=== PATIENT | female | born 1950 | race Caucasian/White ===

== ENCOUNTER 2016-12-16 07:11 | Inpatient (IN) | payer MEDICARE, BC ==
[2016-12-16] MEDS ORDERED: SODIUM CHLORIDE 0.9% 1,000 ML IV STA (07:28)
[2016-12-16] MEDS ORDERED: HYDROmorphone 1 MG/ML 1 ML SYRINGE IVP STA (07:28)
[2016-12-16] MEDS ORDERED: RX INFO: IV CONTRAST WAS GIVEN 1 EACH MISC MISCELLANE PRN (07:28)
[2016-12-16] MEDS ORDERED: FAMOTIDINE 20 MG/2 ML VIAL IV STA (07:29)
--- NOTE | 2016-12-16 07:34 | ED ---
General Adult HPI - General Chief complaint: Abdominal Pain Stated complaint: abdominal pain Time Seen by Provider: 12/16/16 07:25 Source: patient, EMS, RN notes reviewed Mode of arrival: EMS Limitations: no limitations - History of Present Illness Initial comments: Patient is a pleasant 66-year-old female presenting to the emergency department complaining of abdominal discomfort. Discomfort started yesterday and has progressively worsen. Patient has had multiple episodes of emesis without change in bowel movements. Last bowel movement was yesterday and normal. Patient did have similar symptoms last year associated with bowel obstruction. No fevers. Nausea has improved with medication from EMS. - Related Data Home Medications Medication Instructions Recorded Confirmed Atorvastatin [Lipitor] 20 mg PO HS 12/16/16 12/16/16 Calcium Carbonate/Vitamin D3 1 tab PO DAILY 12/16/16 12/16/16 [Calcium 600-Vit D3 200 Tablet] Multivitamins, Thera [Multivitamin 1 tab PO DAILY 12/16/16 12/16/16 (formulary)] amLODIPine BESYLATE/BENAZEPRIL 1 cap PO DAILY 12/16/16 12/16/16 [amLODIPine BESYLATE/BENAZEPRIL 10-20 mg] Allergies Allergy/AdvReac Type Severity Reaction Status Date / Time No Known Allergies Allergy Verified 12/16/16 08:15 Review of Systems ROS Statement: Those systems with pertinent positive or pertinent negative responses have been documented in the HPI. ROS Other: All systems not noted in ROS Statement are negative. Constitutional: Denies: fever Eyes: Denies: eye pain ENT: Denies: ear pain Respiratory: Denies: cough Cardiovascular: Denies: chest pain Endocrine: Denies: fatigue Gastrointestinal: Reports: abdominal pain, nausea, vomiting. Denies: diarrhea, constipation Genitourinary: Denies: dysuria Musculoskeletal: Denies: arthralgia Skin: Denies: rash Past Medical History Past Medical History: Hypertension Additional Past Medical History / Comment(s): OSTEOPOROSIS History of Any Multi-Drug Resistant Organisms: None Reported Past Surgical History: Adenoidectomy, Appendectomy, Orthopedic Surgery, Tonsillectomy Additional Past Surgical History / Comment(s): RT ankle PLATE AND SCREWS, MANDIE CATARACTS Past Anesthesia/Blood Transfusion Reactions: No Reported Reaction Past Psychological History: No Psychological Hx Reported Smoking Status: Current every day smoker Past Alcohol Use History: Occasional Additional Past Alcohol Use History / Comment(s): STARTED SMOKING AT AGE 14, SMOKES 1 PPD, DECLINED A SMOKING CESSATION BOOKLET Past Drug Use History: None Reported - Past Family History Father Family Medical History: Myocardial Infarction (CT) Additional Family Medical History / Comment(s): IN HIS 50'S Mother Family Medical History: Eye Disorder Additional Family Medical History / Comment(s): TREMORS, MACULAR DEGENERATION General Exam Limitations: no limitations General appearance: alert, in no apparent distress Head exam: Present: atraumatic Eye exam: Present: normal appearance, PERRL ENT exam: Present: mucous membranes dry Neck exam: Present: normal inspection Respiratory exam: Present: normal lung sounds bilaterally Cardiovascular Exam: Present: regular rate, normal rhythm Expanded Peripheral pulses: 2+: Dorsalis Pedis (R), Dorsalis Pedis (L) GI/Abdominal exam: Present: soft, tenderness (Mild diffuse tenderness), diminished bowel sounds. Absent: distended, guarding, rebound, rigid, pulsatile mass Extremities exam: Present: normal inspection. Absent: pedal edema, calf tenderness Neurological exam: Present: alert Psychiatric exam: Present: normal affect, normal mood Skin exam: Absent: rash Course Vital Signs 12/16/16 12/16/16 07:13 09:15 Temperature 95.7 F L 96.9 F L Pulse Rate 82 76 Respiratory 16 16 Rate Blood Pressure 165/77 141/78 O2 Sat by Pulse 99 100 Oximetry - Reevaluation(s) Reevaluation #1: 12/16/16 09:44 Patient reexamined and updated. NG tube will be needed. Dr. Calvert pageannette for admission. He is currently in the OR. Medical Decision Making - Lab Data Result diagrams: 12/16/16 07:23 12/16/16 07:23 Lab Results 12/16/16 12/16/16 12/16/16 Range/Units 07:23 07:23 07:23 WBC 9.6 (3.8-10.6) k/uL RBC 5.52 H (3.80-5.40) m/uL Hgb 16.7 H (11.4-16.0) gm/dL Hct 49.8 H (34.0-46.0) % MCV 90.2 (80.0-100.0) fL MCH 30.3 (25.0-35.0) pg MCHC 33.5 (31.0-37.0) g/dL RDW 13.4 (11.5-15.5) % Plt Count 274 (150-450) k/uL Neutrophils % 80 % Lymphocytes % 14 % Monocytes % 5 % Eosinophils % 0 % Basophils % 0 % Neutrophils # 7.6 (1.3-7.7) k/uL Lymphocytes # 1.3 (1.0-4.8) k/uL Monocytes # 0.5 (0-1.0) k/uL Eosinophils # 0.0 (0-0.7) k/uL Basophils # 0.0 (0-0.2) k/uL PT (9.0-12.0) sec INR (<1.1) APTT (22.0-30.0) sec Sodium 143 (137-145) mmol/L Potassium 3.7 (3.5-5.1) mmol/L Chloride 105 (98-107) mmol/L Carbon Dioxide 19 L (22-30) mmol/L Anion Gap 19 mmol/L BUN 16 (7-17) mg/dL Creatinine 0.70 (0.52-1.04) mg/dL Est GFR (MDRD) Af Amer >60 (>60 ml/min/1.73 sqM) Est GFR (MDRD) Non-Af >60 (>60 ml/min/1.73 sqM) Glucose 244 H (74-99) mg/dL Calcium 9.9 (8.4-10.2) mg/dL Total Bilirubin 0.8 (0.2-1.3) mg/dL AST 24 (14-36) U/L ALT 20 (9-52) U/L Alkaline Phosphatase 138 H (38-126) U/L Total Creatine Kinase 31 (30-135) U/L CK-MB (CK-2) 0.6 (0.0-2.4) ng/mL CK-MB (CK-2) Rel Index 1.9 Troponin I <0.012 (0.000-0.034) ng/mL Total Protein 8.1 (6.3-8.2) g/dL Albumin 4.4 (3.5-5.0) g/dL Amylase 52 (30-110) U/L Lipase 64 (23-300) U/L 03 Range/Units 07:23 WBC (3.8-10.6) k/uL RBC (3.80-5.40) m/uL Hgb (11.4-16.0) gm/dL Hct (34.0-46.0) % MCV (80.0-100.0) fL MCH (25.0-35.0) pg MCHC (31.0-37.0) g/dL RDW (11.5-15.5) % Plt Count (150-450) k/uL Neutrophils % % Lymphocytes % % Monocytes % % Eosinophils % % Basophils % % Neutrophils # (1.3-7.7) k/uL Lymphocytes # (1.0-4.8) k/uL Monocytes # (0-1.0) k/uL Eosinophils # (0-0.7) k/uL Basophils # (0-0.2) k/uL PT 10.6 (9.0-12.0) sec INR 1.0 (<1.1) APTT 22.4 (22.0-30.0) sec Sodium (137-145) mmol/L Potassium (3.5-5.1) mmol/L Chloride (98-107) mmol/L Carbon Dioxide (22-30) mmol/L Anion Gap mmol/L BUN (7-17) mg/dL Creatinine (0.52-1.04) mg/dL Est GFR (MDRD) Af Amer (>60 ml/min/1.73 sqM) Est GFR (MDRD) Non-Af (>60 ml/min/1.73 sqM) Glucose (74-99) mg/dL Calcium (8.4-10.2) mg/dL Total Bilirubin (0.2-1.3) mg/dL AST (14-36) U/L ALT (9-52) U/L Alkaline Phosphatase (38-126) U/L Total Creatine Kinase (30-135) U/L CK-MB (CK-2) (0.0-2.4) ng/mL CK-MB (CK-2) Rel Index Troponin I (0.000-0.034) ng/mL Total Protein (6.3-8.2) g/dL Albumin (3.5-5.0) g/dL Amylase (30-110) U/L Lipase (23-300) U/L Disposition Clinical Impression: Small bowel obstruction Disposition: ADMITTED IP TO THIS HOSP
[2016-12-16 07:46] LABS: Basophils % (A) 0 %; CH 30.3; CHCM 33.7; Eosinophils % (A) 0 %; HCT 49.8 % (34.0-46.0); HDW 2.47; HGB 16.7 gm/dL (11.4-16.0); Luc # (Auto) 0.07; Luc % (Auto) 1; Lymphocytes # (A) 1.3 k/uL (1.0-4.8); Lymphocytes % (A) 14 %; MCH 30.3 pg (25.0-35.0); MCHC 33.5 g/dL (31.0-37.0); MCV 90.2 fL (80.0-100.0); Mean Platelet Volume 7.4; Monocytes # (A) 0.5 k/uL (0-1.0); Monocytes % (A) 5 %; Neutrophils # (A) 7.6 k/uL (1.3-7.7); Neutrophils % (A) 80 %; RBC 5.52 m/uL (3.80-5.40); RDW 13.4 % (11.5-15.5); WBC 9.6 k/uL (3.8-10.6); WBC (Perox) 9.73
[2016-12-16 08:01] LABS: ALT 20 U/L (9-52); AST 24 U/L (14-36); Alkaline Phosphatase 138 U/L (38-126); Amylase 52 U/L (30-110); Anion Gap 19 mmol/L; Blood Urea Nitrogen 16 mg/dL (7-17); Calcium 9.9 mg/dL (8.4-10.2); Carbon Dioxide 19 mmol/L (22-30); Chloride 105 mmol/L (98-107); Glucose 244 mg/dL (74-99); Non-African American GFR(MDRD) >60 (>60 ml/min/1.73 sqM); Potassium 3.7 mmol/L (3.5-5.1); Sodium 143 mmol/L (137-145); Total Bilirubin 0.8 mg/dL (0.2-1.3); Total Protein 8.1 g/dL (6.3-8.2)
--- NOTE | 2016-12-16 08:03 | XR ---
EXAMINATION TYPE: XR KUB DATE OF EXAM: 12/16/2016 7:59 AM COMPARISON: 06/20/2016 HISTORY: Abdominal pain TECHNIQUE: One view abdominal series FINDINGS: The osseous structures are intact. The bowel gas pattern is nonspecific. Hypertrophic and degenerati ve change of the spine with vascular calcifications noted. There are air-fluid levels noted with dila uqincy small bowel loops. Vascular calcifications noted. IMPRESSION: 1. Nonspecific abdomen. Differential diagnosis would include partial obstruction, ileus or enteritis . With history of previous bowel resection correlate for partial bowel obstruction.
[2016-12-16 08:09] LABS: Partial Thromboplastin Time 22.4 sec (22.0-30.0); Prothrombin Time 10.6 sec (9.0-12.0)
[2016-12-16 08:10] LABS: Creatine Kinase 31 U/L (30-135)
[2016-12-16 08:22] LABS: Creatine Kinase MB 0.6 ng/mL (0.0-2.4); Troponin I <0.012 ng/mL (0.000-0.034)
--- NOTE | 2016-12-16 09:13 | CT ---
EXAMINATION TYPE: CT abdomen pelvis w con DATE OF EXAM: 12/16/2016 8:44 AM REFERENCE: Previous study dated 06/22/2016 HISTORY: abdominal pain HISTORY: Patient complains of generalized abdominal pain, nausea, and vomiting. REFERENCE: NONE CT DLP: 615.7 mGy Automated exposure control for dose reduction was used. TECHNIQUE: Helical acquisition through the abdomen and pelvis was obtained following the oral ingesti on of without Oral Contrast and following intravenous administration of 100 mL of Omnipaque 300. The data was reformatted in axial, coronal and sagittal projections. FINDINGS: Visualized portions of the lungs are clear. There is no pleural or pericardial fluid. Within the abdomen, the liver, spleen and gallbladder are normal. Both adrenal glands are normal. Both kidneys demonstrate function and appear morphologically normal. The pancreas is unremarkable. There is an infrarenal abdominal aortic aneurysm with maximal transverse diameter of 4.1 cm. Previous ly this measured 4 cm. There is no significant retroperitoneal, iliac or inguinal adenopathy. The patient has a history of previous cecal resection. There are scattered diverticular changes in th e sigmoid colon. The remainder the colon is unremarkable. There is some dilatation of proximal small bowel. A definite transition point is not seen but is bk eved to be in the pelvis. The distal small bowel is normal in caliber. The uterus is unremarkable. The ovaries are not identified with certainty. The bladder appears normal . There is free fluid within the pelvis. No free air is seen. There is degenerative disc disease and hypertrophic spondylosis at L4-5. No other osseous lesion is s een. There is mild atheromatous calcification of the visualized vascular tree. IMPRESSION: 1. INFRARENAL ABDOMINAL AORTIC ANEURYSM WHICH IS STABLE FROM THE PREVIOUS STUDY. 2. PROXIMAL SMALL BOWEL OBSTRUCTION WITHOUT A DEFINITE TRANSITION POINT. 3. POSTSURGICAL CHANGE. 4. FREE FLUID WITHIN THE PELVIS.
[2016-12-16] MEDS ORDERED: HYDROmorphone 1 MG/ML 1 ML SYRINGE IV PRN (09:45)
[2016-12-16] MEDS ORDERED: ONDANSETRON 4 MG/2 ML VIAL IVP PRN ×2 (09:45→17:02)
[2016-12-16] MEDS ORDERED: NALOXONE 0.4 MG/ML 1 ML VIAL IV PRN (09:45)
[2016-12-16 10:11] LABS: Appearance,Urine Clear (Clear); Bilirubin,Urine Negative (Negative); Glucose,Urine (UA) 3+ (Negative); Ketones,Urine Trace (Negative); Leukocyte Esterase,Urine Negative (Negative); Mucus,Urine Rare /hpf; Nitrite,Urine Negative (Negative); Particle Count 2082; Protein,Urine Trace (Negative); RBC,Urine 2 /hpf (0-5); Squamous Epithelial Cell,Urine 3 /hpf (0-4); UA Billing (MACRO vs. MICRO) MICRO; Urobilinogen,Urine <2.0 mg/dL (<2.0); WBC,Urine 2 /hpf (0-5)
[2016-12-16 10:16] LABS: Specific Gravity,Urine >1.050 (1.001-1.035)
[2016-12-16] MEDS: SODIUM CHLORIDE 0.9% 1,000 ML IV SCH ×2 (11:32→18:14)
[2016-12-16] MEDS: ACETAMINOPHEN IV (For NPO) 1,000 MG in EMPTY BAG 1 BAG IVPB SCH ×2 (14:02→18:38)
[2016-12-16 17:02] LABS: Glucose,Whole Blood 143 mg/dL (75-99)
--- NOTE | 2016-12-16 17:04 | P.GSHP ---
History of Present Illness H&P Date: 12/16/16 Chief Complaint: Abdominal pain Patient is a 66-year-old white female with past medical history significant for bowel obstruction with right colectomy in May 2016, presenting to the hospital with complaints of diffuse pain associated with nausea and vomiting 1 day. No history of fever or chills. CT of abdomen and pelvis with evidence of proximal small bowel obstruction without a definite transition point. No evidence of leukocytosis. Hemoglobin 16.7. Upon examination, patient complains of diffuse abdominal pain currently rated 4 out of 10 associated with mild nausea without vomiting. Patient denies flatus or bowel movement. Patient states the last bowel movement was yesterday. Denies melena, hematochezia, or hematemesis. Past Medical History Past Medical History: Hyperlipidemia, Hypertension Additional Past Medical History / Comment(s): 06/14/16 Partial SBO wit surgery and abdominal abscess drained with f/u at [facility]-now healed, beginning of OSTEOPOROSIS History of Any Multi-Drug Resistant Organisms: None Reported Past Surgical History: Adenoidectomy, Appendectomy, Orthopedic Surgery, Tonsillectomy Additional Past Surgical History / Comment(s): 05/2016 exploratory laparatomy with lysis of adhesions, R colectomy, abdominal wall abscess with drainage-f/u in wound center, RT ankle PLATE AND SCREWS, MANDIE CATARACTS Past Anesthesia/Blood Transfusion Reactions: Postoperative Nausea & Vomiting ( PONV) Past Psychological History: No Psychological Hx Reported Additional Psychological History / Comment(s): Pt resides with her spouse. She uses no assistive device. She drives. Smoking Status: Current every day smoker Past Alcohol Use History: Occasional Additional Past Alcohol Use History / Comment(s): STARTED SMOKING AT AGE 14, SMOKES 1 PPD. Past Drug Use History: None Reported - Past Family History Father Family Medical History: Myocardial Infarction (PA) Additional Family Medical History / Comment(s): IN HIS 50'S of a PA Mother Family Medical History: Eye Disorder Additional Family Medical History / Comment(s): TREMORS, MACULAR DEGENERATION Medications and Allergies Home Medications Medication Instructions Recorded Confirmed Type Atorvastatin [Lipitor] 20 mg PO HS 12/16/16 12/16/16 History Calcium Carbonate/Vitamin D3 1 tab PO DAILY 12/16/16 12/16/16 History [Calcium 600-Vit D3 200 Tablet] Multivitamins, Thera [Multivitamin 1 tab PO DAILY 12/16/16 12/16/16 History (formulary)] amLODIPine BESYLATE/BENAZEPRIL 1 cap PO DAILY 12/16/16 12/16/16 History [amLODIPine BESYLATE/BENAZEPRIL 10-20 mg] Allergies Allergy/AdvReac Type Severity Reaction Status Date / Time No Known Allergies Allergy Verified 12/16/16 08:15 Surgical - Exam Vital Signs Temp Pulse Resp BP Pulse Ox 95.7 F L 82 16 165/77 99 12/16/16 07:13 12/16/16 07:13 12/16/16 07:13 12/16/16 07:13 12/16/16 07:13 GENERAL: Pt awake and alert, well-nourished, and in no acute distress. HEAD: Atraumatic, normocephalic. EYES: Pupils equal, round, and reactive to light, extraocular movements intact, sclera anicteric, conjunctiva are normal. ENT: Moist mucous membranes. NECK:Supple without lymphadenopathy or JVD. LUNGS: Breath sounds clear to auscultation bilaterally. No wheezes, rales, or rhonchi. HEART: Heart S1, S2, no S3 or S4. Regular rate and rhythm. No murmurs, rubs or gallops. ABDOMEN: Soft, moderate diffuse abdominal tenderness, mildly distended, hypoactive bowel sounds. No guarding, no rebound. No masses or organomegaly appreciated. Surgical scar clean. Results - Labs 12/16/16 07:23 12/16/16 07:23 - Imaging Abdominal x-ray: report reviewed CT scan - pelvis: report reviewed US - abdomen: report reviewed Assessment and Plan Plan: Impression: 1. Abdominal pain associated with nausea and vomiting, present on admission, suspect secondary to small bowel obstruction. 2. History of small bowel obstruction with right colectomy. Plan: Continue to monitor patient. Nothing by mouth. Continue nasogastric tube to low intermittent suction for small bowel decompression. Continue symptomatic treatment and pain management. Continue GI and DVT prophylaxis. Continue incentive spirometer 10 times an hour while awake. Consult Dr Webber for medical management. Repeat CBC and BMP in a.m. The above impression and plan have been discussed and directed by Dr. Calvert. Yoly BEEBE acting as scribe for Dr. Calvert.
[2016-12-16] MEDS: HYDROmorphone 1 MG/ML 1 ML SYRINGE IVP PRN ×2 (18:15→22:02)
[2016-12-16 19:24] LABS: Hemoglobin A1C 5.7 % (4.2-6.1)
--- NOTE | 2016-12-16 19:33 | CONS ---
DATE OF CONSULTATION: REASON FOR CONSULTATION: Partial small bowel obstruction and management of hypertension. Patient is a pleasant 66-year-old female who came in with complaints of multiple episodes of nausea and vomiting which is bilious. Denied any ( ). Denied any hematochezia. Patient has minimal abdominal discomfort. Denied any fever or chills. Denied any diarrhea. Denied any suprapubic pain. Patient had a CT of the abdomen that showed partial small-bowel obstruction. Patient had a small-bowel obstruction in the past. Patient underwent laparotomy ( ) adhesiolysis. Patient's last bowel movement was yesterday and was normal. Patient has an NG tube which is not is not draining at this time, which will be readjusted. REVIEW OF SYSTEMS: CONSTITUTIONAL: No fever, no malaise, no fatigue. HEENT: No recent visual problems or hearing problems. Denied any sore throat. CARDIOVASCULAR: No chest pain, orthopnea, PND, no palpitations, no syncope. PULMONARY: No shortness of breath, no cough, no hemoptysis. GASTROINTESTINAL: As described in HPI. NEUROLOGICAL: No headaches, no weakness, no numbness. HEMATOLOGICAL: Denies any bleeding or petechiae. GENITOURINARY: Denies any burning micturition, frequency, or urgency. MUSCULOSKELETAL/RHEUMATOLOGICAL: Denies any joint pain, swelling, or any muscle pain. ENDOCRINE: Denies any polyuria or polydipsia. The rest of the 14 point review of systems is negative. Home medications include: 1. Atorvastatin. 2. Calcium carbonate. 3. Multivitamin. 4. Amlodipine. 5. Benazepril. ALLERGIES: NO KNOWN DRUG ALLERGIES. Past medical history is significant for: 1. Hypertension. 2. Hyperlipidemia. 3. Osteoporosis. 4. History of adenoidectomy. 5. Appendectomy. 6. Orthopedic surgery. 7. Abdominal surgery in the past for bowel obstruction. SOCIAL HISTORY: Patient does smoke. Denied any alcohol abuse or any drug abuse. FAMILY HISTORY: Father had myocardial infarction. PHYSICAL EXAMINATION: VITAL SIGNS: Temperature 96.9, pulse of 76, respiratory rate of 16. Blood pressure is 141/78. Saturating at 100% on room air. GENERAL: The patient is alert and oriented x3, not in any acute distress. Well developed, well nourished. HEENT: Pupils are round and equally reacting to light. EOMI. No scleral icterus. No conjunctival pallor. Normocephalic, atraumatic. No pharyngeal erythema. No thyromegaly. CARDIOVASCULAR: S1 and S2 present. No murmurs, rubs, or gallops. PULMONARY: Chest is clear to auscultation, no wheezing or crackles. ABDOMEN: ( ) sluggish bowel sounds. Has an NG tube in place which is not appropriately placed yet. It will be readjusted. Not draining anything ( ) MUSCULOSKELETAL: No joint swelling or deformity. EXTREMITIES: No cyanosis, clubbing, or pedal edema. NEUROLOGICAL: Gross neurological examination did not reveal any focal deficits. SKIN: No rashes. LABORATORY DATA: CBC and CMP are abnormal for total bicarbonate of 19, probably related to GI losses of bicarbonate. Calcium of 9.9. WBC is essentially within normal. INR is 1.0. ASSESSMENT AND PLAN: 1. Partial small-bowel obstruction. Patient is admitted to surgical services and patient has an NG tube ( ) 2. Metabolic acidosis secondary to ( ) bicarbonate from the GI tract. 3. Hypertension. Can hold ( ) at which point in time ( ) patient's blood pressures are expected to go down because of her nausea, vomiting ( ) hypokalemia ( ) started on Lipitor whenever it is appropriate to switch ( ) 4. ( )
[2016-12-16] MEDS: ATORVASTATIN 20 MG TAB PO SCH (22:07)
[2016-12-17] MEDS: HYDROmorphone 1 MG/ML 1 ML SYRINGE IVP PRN ×5 (01:45→16:40)
[2016-12-17] MEDS: ACETAMINOPHEN IV (For NPO) 1,000 MG in EMPTY BAG 1 BAG IVPB SCH ×2 (04:46)
[2016-12-17] MEDS: SODIUM CHLORIDE 0.9% 1,000 ML IV SCH ×2 (04:46→11:52)
[2016-12-17 06:44] LABS: Glucose,Whole Blood 126 mg/dL (75-99)
[2016-12-17 07:49] LABS: CH 30.1; CHCM 33.1; HCT 42.6 % (34.0-46.0); HDW 2.54; HGB 13.9 gm/dL (11.4-16.0); Immature Gran Flag Marked; MCH 29.9 pg (25.0-35.0); MCHC 32.7 g/dL (31.0-37.0); MCV 91.5 fL (80.0-100.0); Mean Platelet Volume 7.5; RBC 4.65 m/uL (3.80-5.40); RDW 13.9 % (11.5-15.5); WBC 14.5 k/uL (3.8-10.6); WBC (Perox) 14.89
[2016-12-17 08:01] LABS: Magnesium 1.6 mg/dL (1.6-2.3); Potassium 4.7 mmol/L (3.5-5.1)
[2016-12-17] MEDS: PANTOPRAZOLE 40 MG/10 ML VIAL IV SCH (08:29)
[2016-12-17 09:06] LABS: Add Differential Manual Differential
[2016-12-17 09:09] LABS: Metamyelocytes % 1.5 %; Nucleated Red Blood Cells 0 /100 WBC (0-0); Total Cells Counted 200
[2016-12-17 09:11] LABS: RBC Morphology Normal
--- NOTE | 2016-12-17 12:31 | P.PN ---
Subjective Principal diagnosis: Small bowel obstruction The patient denies any significant flatus. She states that she still has some abdominal pain. She states sometimes the pain extends towards the rectum. Objective - Vital Signs Vital signs: Vital Signs Temp 98.3 F 12/17/16 07:00 Pulse 128 H 12/17/16 08:00 Resp 18 12/17/16 07:00 BP 99/65 12/17/16 07:00 Pulse Ox 97 12/17/16 07:00 Intake & Output 12/16/16 12/17/16 12/17/16 18:59 06:59 18:59 Intake Total 1375 Output Total 450 450 Balance -450 925 Intake: Intake, IV Titration 1375 Amount Sodium Chloride 0.9% 1, 1375 000 ml @ 125 mls/hr IV . Q8H ABDULLAHI Rx#:[id number] Output: Gastric Drainage 450 450 Other: # Voids 1 2 1 - Constitutional General appearance: Present: average body habitus - Gastrointestinal Gastrointestinal Comment(s): Abdomen soft. There is minimal distention. There is some mild tenderness throughout. There is no rebound or guarding. - Labs CBC & Chem 7: 12/17/16 07:13 12/17/16 07:13 Labs: Abnormal Lab Results - Last 24 Hours (Table) 12/16/16 12/17/16 12/17/16 Range/Units 16:55 06:42 07:13 WBC 14.5 H (3.8-10.6) k/uL Neutrophils # (Manual) 11.9 H (1.3-7.7) k/uL Lymphocytes # (Manual) 0.8 L (1.0-4.8) k/uL Monocytes # (Manual) 1.4 H (0-1.0) k/uL Chloride (98-107) mmol/L Carbon Dioxide (22-30) mmol/L BUN (7-17) mg/dL Creatinine (0.52-1.04) mg/dL Glucose (74-99) mg/dL POC Glucose (mg/dL) 143 H 126 H (75-99) mg/dL 12/17/16 Range/Units 07:13 WBC (3.8-10.6) k/uL Neutrophils # (Manual) (1.3-7.7) k/uL Lymphocytes # (Manual) (1.0-4.8) k/uL Monocytes # (Manual) (0-1.0) k/uL Chloride 113 H (98-107) mmol/L Carbon Dioxide 18 L (22-30) mmol/L BUN 33 H (7-17) mg/dL Creatinine 1.68 H (0.52-1.04) mg/dL Glucose 125 H (74-99) mg/dL POC Glucose (mg/dL) (75-99) mg/dL Assessment and Plan Plan: Small bowel structure. Patient will continue receive nasogastric tube decompression. She'll be observed closely. If her symptoms have not improved tomorrow we will repeat her CAT scan.
[2016-12-17] MEDS ORDERED: LORazepam 2 MG/ML SYRINGE IV PRN (12:49)
[2016-12-17] MEDS: LACTATED RINGERS 1,000 ML IV SCH ×2 (16:46→23:01)
[2016-12-17] MEDS: PIPERACILLIN-TAZOBACTAM 3.375 GM in DEXTROSE/WATER 1 50ML.BAG IVPB SCH (16:46)
[2016-12-17 17:07] LABS: Glucose,Whole Blood 67 mg/dL (75-99)
[2016-12-17 17:48] LABS: Glucose,Whole Blood 64 mg/dL (75-99)
[2016-12-17] MEDS ORDERED: DEXTROSE 50%-WATER 50 ML SYRINGE IVP ONE (18:44)
[2016-12-17] MEDS ORDERED: DEXTROSE 5% IN WATER 1,000 ML IV SCH (18:45)
[2016-12-17] MEDS: DEXTROSE 50%-WATER 50 ML SYRINGE IVP STA (18:45)
[2016-12-17 19:22] LABS: Glucose,Whole Blood 84 mg/dL (75-99)
[2016-12-17] MEDS ORDERED: DEXTROSE 50%-WATER 50 ML SYRINGE IVP STA (19:48)
[2016-12-17 19:49] LABS: Glucose,Whole Blood 58 mg/dL (75-99)
[2016-12-17] MEDS: DEXTROSE 5% IN WATER 1,000 ML IV SCH (20:19)
[2016-12-17 20:20] LABS: Glucose,Whole Blood 137 mg/dL (75-99)
[2016-12-17] MEDS: ATORVASTATIN 20 MG TAB PO SCH (20:23)
[2016-12-17 21:03] LABS: Glucose,Whole Blood 86 mg/dL (75-99)
--- NOTE | 2016-12-17 21:13 | PN ---
Patient is a 66-year-old lady admitted with partial small-bowel obstruction and patient was started on antibiotics by Surgery. I will leave that decision up to them. Patient does have leukocytosis which is reactive without any other signs or symptoms of infection at this point of time. Patient has hyperchloremia, because of which I am changing her fluids to lactated Ringer's. Patient is still having NG tube drainage, but patient does have bowel sounds and is passing gas. REVIEW OF SYSTEMS: CARDIOVASCULAR: No chest pain, no orthopnea, no PND, no palpitations. PULMONARY: Denied any shortness of breath. No cough or hemoptysis. GASTROINTESTINAL: As mentioned above. NEUROLOGIC: No headaches, no weakness, no numbness. Medications were reviewed. Medication changes as mentioned in the interval history. PHYSICAL EXAMINATION: VITAL SIGNS: Temperature 97.6, pulse of 55, respiratory rate of 16, blood pressure is ( )/92, saturating at 95% on room air. GENERAL: Patient has an NG tube in place. Alert and oriented x3, not in apparent respiratory distress. HEENT: Pupils are round and equally reacting to light. EOMI. No scleral icterus. No conjunctival pallor. Normocephalic, atraumatic. No pharyngeal erythema. No thyromegaly. CARDIOVASCULAR: S1 and S2 present. No murmurs, rubs, or gallops. PULMONARY: Chest is clear to auscultation, no wheezing or crackles. ABDOMEN: Bowel sounds present. Abdomen is soft, mildly distended, nontender. MUSCULOSKELETAL: No joint swelling or deformity. EXTREMITIES: No cyanosis, clubbing, or pedal edema. NEUROLOGICAL: Gross neurological examination did not reveal any focal deficits. SKIN: No rashes. LABORATORY DATA: Patient has hyperchloremia, as mentioned above. Bicarbonate is 18, probably because of hyperchloremia. Kidney function has worsened, because of which I am increasing the fluids to 150 mL/h. ASSESSMENT AND PLAN: 1. Partial small-bowel obstruction. Continue with nasogastric tube. Further management as per Primary Service. 2. Metabolic acidosis secondary to also bicarbonate from the gastrointestinal tract. 3. Hypertension. Continue to hold antihypertensive medications because intravascular volume depletion. 4. Acute renal failure. Started on lactated Ringer's. 5. Hyperchloremia due to normal saline. 6. Will continue to follow the patient.
[2016-12-17] MEDS ORDERED: IOHEXOL 350 MG/ML 25 ML BOTTLE (ORAL USE) PO PRN (21:19)
[2016-12-17] MEDS ORDERED: RX INFO: IV CONTRAST WAS GIVEN 1 EACH MISC MISCELLANE PRN (21:19)
[2016-12-17 22:15] LABS: ALT 729 U/L (9-52); Alkaline Phosphatase 64 U/L (38-126); Anion Gap 17 mmol/L; Blood Urea Nitrogen 52 mg/dL (7-17); Calcium 8.3 mg/dL (8.4-10.2); Carbon Dioxide 11 mmol/L (22-30); Chloride 117 mmol/L (98-107); Glucose 74 mg/dL (74-99); Phosphorous 5.4 mg/dL (2.5-4.5); Potassium 5.4 mmol/L (3.5-5.1); Sodium 145 mmol/L (137-145); Total Bilirubin 1.7 mg/dL (0.2-1.3); Total Protein 5.3 g/dL (6.3-8.2)
[2016-12-17 22:16] LABS: Glucose,Whole Blood 52 mg/dL (75-99)
[2016-12-17 22:17] LABS: AST >750 U/L (14-36); Non-African American GFR(MDRD) 13 (>60 ml/min/1.73 sqM)
[2016-12-17 22:33] LABS: Glucose,Whole Blood 98 mg/dL (75-99)
[2016-12-17 22:42] LABS: Basophils % (A) 0 %; CH 29.3; CHCM 31.1; Eosinophils % (A) 0 %; HCT 36.4 % (34.0-46.0); HDW 2.56; HGB 11.5 gm/dL (11.4-16.0); Hypochromasia Slight; Immature Gran Flag Marked; Luc # (Auto) 0.16; Luc % (Auto) 2; Lymphocytes # (A) 0.8 k/uL (1.0-4.8); Lymphocytes % (A) 9 %; MCH 29.9 pg (25.0-35.0); MCHC 31.6 g/dL (31.0-37.0); MCV 94.9 fL (80.0-100.0); Mean Platelet Volume 8.7; Monocytes # (A) 0.4 k/uL (0-1.0); Monocytes % (A) 5 %; Neutrophils # (A) 6.8 k/uL (1.3-7.7); Neutrophils % (A) 83 %; RBC 3.84 m/uL (3.80-5.40); RDW 14.1 % (11.5-15.5); WBC 8.2 k/uL (3.8-10.6); WBC (Perox) 8.15
[2016-12-17 22:50] LABS: Manual Review Performed; Toxic Granulation Present
[2016-12-17] MEDS: NOREPINEPHRINE 16 MG in SODIUM CHLORIDE 0.9% 250 ML IV SCH (23:51)
[2016-12-18] MEDS: PIPERACILLIN-TAZOBACTAM 3.375 GM in DEXTROSE/WATER 1 50ML.BAG IVPB SCH ×3 (00:08→16:06)
[2016-12-18] MEDS: HYDROmorphone 1 MG/ML 1 ML SYRINGE IVP PRN ×2 (01:13→21:16)
[2016-12-18 02:02] LABS: Glucose,Whole Blood 84 mg/dL (75-99)
[2016-12-18] MEDS: DEXTROSE 5% IN WATER 1,000 ML IV SCH ×2 (02:34→09:54)
--- NOTE | 2016-12-18 02:34 | CT ---
EXAM: CT Abdomen and Pelvis Without Intravenous Contrast. CLINICAL HISTORY: Reason: obstruction TECHNIQUE: Axial computed tomography images of the abdomen and pelvis without intravenous contrast. CTDI is 20.6 mGy and DLP is 989.6 mGy-cm This CT exam was performed using one or more of the following dose reduction techniques: automated exposure control, adjustment of the mA and/or kV according to patient size, and/or use of iterative reconstruction technique. COMPARISON: CT 12/16/2016. FINDINGS: Lower thorax: Small bilateral pleural effusions with bibasilar consolidation, new since prior study. ABDOMEN: Liver: Unremarkable. Gallbladder and bile ducts: Distended gallbladder. Pancreas: Unremarkable. Spleen: Unremarkable. Adrenals: Thickening of the bilateral adrenal glands, unchanged. Kidneys and ureters: Patchy hyperdensities in the bilateral kidneys, unclear etiology, query retained contrast. Correlate with renal function. No hydronephrosis. Stomach and bowel: Distended bowel loops again noted, compatible with bowel obstruction. Interval increase in gastric, duodenal and proximal small bowel distention. Areas of small and large bowel wall thickening suggestive of enterocolitis. Difficult considerations include inflammatory/infectious or ischemic etiologies. There is associated mesenteric stranding/edema. Interval increase in moderate ascites. Prior bowel surgery again noted. Colonic diverticula. PELVIS: Bladder: Coelho catheter in a decompressed bladder. Reproductive: A 4.8 cm hyperdense ovoid lesion in the right pelvis, possible ovarian or exophytic uterine lesion, not significantly changed. ABDOMEN and PELVIS: Intraperitoneal space: See above. Bones/joints: Degenerative changes in the spine. Soft tissues: Unremarkable. Vasculature: Stable infrarenal abdominal aortic aneurysm measuring up to 4.1 cm. Atherosclerotic disease. Lymph nodes: Unremarkable. Tubes, lines and devices: Feeding tube with the tip in the stomach. IMPRESSION: 1. Distended bowel loops again noted, compatible with bowel obstruction. Interval increase in gastric, duodenal and proximal small bowel distention. Areas of small and large bowel wall thickening suggestive of enterocolitis. Difficult considerations include inflammatory/infectious or ischemic etiologies. There is associated mesenteric stranding/edema. Interval increase in moderate ascites. 2. Small bilateral pleural effusions with bibasilar consolidation, new since prior study. 3. Patchy hyperdensities in the bilateral kidneys, unclear etiology, query retained contrast. Correlate with renal function. 4. Additional findings, as above.
[2016-12-18 04:39] LABS: Glucose,Whole Blood 93 mg/dL (75-99)
[2016-12-18 04:49] LABS: CH 29.8; CHCM 32.3; HCT 37.1 % (34.0-46.0); HDW 2.58; HGB 12.3 gm/dL (11.4-16.0); Immature Gran Flag Marked; MCH 30.8 pg (25.0-35.0); MCHC 33.2 g/dL (31.0-37.0); MCV 92.9 fL (80.0-100.0); Mean Platelet Volume 8.4; RDW 14.3 % (11.5-15.5); WBC (Perox) 9.64
[2016-12-18 05:14] LABS: Calcium 7.3 mg/dL (8.4-10.2); Magnesium 1.6 mg/dL (1.6-2.3); Phosphorous 4.7 mg/dL (2.5-4.5); Potassium 4.9 mmol/L (3.5-5.1); Total Protein 4.6 g/dL (6.3-8.2)
[2016-12-18 05:37] LABS: Add Differential Manual Differential
[2016-12-18 05:40] LABS: Manual Review Performed; Nucleated Red Blood Cells 0 /100 WBC (0-0); Total Cells Counted 200
--- NOTE | 2016-12-18 07:16 | XR ---
EXAMINATION TYPE: XR chest 1V DATE OF EXAM: 12/18/2016 6:56 AM HISTORY: small bowel obstruction. REFERENCE: Previous study dated 06/23/2016. FINDINGS: An NG tube is present with its tip in the stomach. There are small, bilateral pleural effusions. Heart size is upper limits of normal. There is bibasila r atelectasis. IMPRESSION: 1. BILATERAL EFFUSIONS. 2. BORDERLINE CARDIOMEGALY. 3. BIBASILAR ATELECTASIS.
[2016-12-18 08:09] LABS: Glucose,Whole Blood 69 mg/dL (75-99)
[2016-12-18 08:10] LABS: ABG PCO2 23 mmHg (35-45); ABG PH 7.21 (7.35-7.45); ABG PO2 57 mmHg (83-108)
[2016-12-18 08:11] LABS: ABG Base Excess -17.5 mmol/L; ABG HCO3 9 mmol/L (21-25); ABG TCO2 10 mmol/L (19-24)
[2016-12-18 08:12] LABS: Glucose,Whole Blood 92 mg/dL (75-99)
[2016-12-18] MEDS ORDERED: MORPHINE SULFATE 2 MG/ML SYRINGE ONE ×3 (08:40→08:43)
[2016-12-18] MEDS ORDERED: SUCCINYLCHOLINE CHLORIDE 100 MG/5 ML SYR IV ONE (08:41)
[2016-12-18] MEDS ORDERED: CISATRACURIUM 2 MG/ML 5 ML VIAL IV ONE ×2 (08:43→08:55)
[2016-12-18] MEDS ORDERED: MORPHINE SULFATE 2 MG/ML SYRINGE IV SCH (09:00)
[2016-12-18] MEDS ORDERED: CISATRACURIUM 200 MG in SODIUM CHLORIDE 0.9% 180 ML IV SCH (09:10)
--- NOTE | 2016-12-18 09:13 | P.CNPUL ---
History of Present Illness Consult date: 12/18/16 Reason for consult: other Chief complaint: Bowel obstruction History of present illness: 66-year-old female admitted through the emergency department on 12/16/2016 with complaints of abdominal pain. Computed tomography scan revealed evidence of bowel obstruction. She has a previous history of same about 6 months ago and had exploratory laparotomy with lysis of adhesions. The pain got worse and she was transferred from the floor up into the ICU. She was admitted on the she went to the ICU on the first. I came to see her on the second in the morning. The nurse call me to states she was getting worse. Her respiratory rate was rapid. Her blood pressure had dropped. She had poor urine output. She was in distress. I immediately intubated the patient and placed a left internal jugular triple-lumen catheter. An art line had been previously placed. I put her on the ventilator. We went ahead and sedated and paralyzed her. Blood gases are pending. When she came into the emergency room, she had not only abdominal discomfort but she had multiple episodes of emesis. Apparently Dr. Calvert has talk to the family and they're taken to the operating room for an exploratory laparotomy. Review of Systems ROS unobtainable: due to endotracheal tube Past Medical History Past Medical History: Hyperlipidemia, Hypertension Additional Past Medical History / Comment(s): 06/14/16 Partial SBO wit surgery and abdominal abscess drained with f/u at [facility]-now healed, beginning of OSTEOPOROSIS History of Any Multi-Drug Resistant Organisms: None Reported Past Surgical History: Adenoidectomy, Appendectomy, Orthopedic Surgery, Tonsillectomy Additional Past Surgical History / Comment(s): 05/2016 exploratory laparatomy with lysis of adhesions, R colectomy, abdominal wall abscess with drainage-f/u in wound center, RT ankle PLATE AND SCREWS, MANDIE CATARACTS Past Anesthesia/Blood Transfusion Reactions: Postoperative Nausea & Vomiting ( PONV) Past Psychological History: No Psychological Hx Reported Additional Psychological History / Comment(s): Pt resides with her spouse. She uses no assistive device. She drives. Smoking Status: Current every day smoker Past Alcohol Use History: Occasional Additional Past Alcohol Use History / Comment(s): STARTED SMOKING AT AGE 14, SMOKES 1 PPD. Past Drug Use History: None Reported - Past Family History Father Family Medical History: Myocardial Infarction (MS) Additional Family Medical History / Comment(s): IN HIS 50'S of a MS Mother Family Medical History: Eye Disorder Additional Family Medical History / Comment(s): TREMORS, MACULAR DEGENERATION Medications and Allergies Home Medications Medication Instructions Recorded Confirmed Type Atorvastatin [Lipitor] 20 mg PO HS 12/16/16 12/16/16 History Calcium Carbonate/Vitamin D3 1 tab PO DAILY 12/16/16 12/16/16 History [Calcium 600-Vit D3 200 Tablet] Multivitamins, Thera [Multivitamin 1 tab PO DAILY 12/16/16 12/16/16 History (formulary)] amLODIPine BESYLATE/BENAZEPRIL 1 cap PO DAILY 12/16/16 12/16/16 History [amLODIPine BESYLATE/BENAZEPRIL 10-20 mg] Allergies Allergy/AdvReac Type Severity Reaction Status Date / Time No Known Allergies Allergy Verified 12/16/16 08:15 Physical Exam Osteopathic Statement: *. No significant issues noted on an osteopathic structural exam other than those noted in the History and Physical/Consult. Vitals: Vital Signs Temp Pulse Pulse Resp BP BP Pulse Ox 12/18/16 07:00 107 H 34 H 93 L 12/18/16 06:50 107 H 43 H 96 12/18/16 06:40 110 H 41 H 93 L 12/18/16 06:30 110 H 39 H 94 L 12/18/16 06:20 95 32 H 94 L 12/18/16 06:10 113 H 42 H 86/64 93 L 12/18/16 06:00 115 H 40 H 86/64 92 L 12/18/16 05:50 116 H 44 H 86/64 90 L 12/18/16 05:40 111 H 39 H 86/64 91 L 12/18/16 05:30 115 H 35 H 86/64 92 L 12/18/16 05:20 104 H 40 H 86/64 83 L 12/18/16 05:10 109 H 37 H 98/56 91 L 12/18/16 05:00 111 H 33 H 98/56 85 L 12/18/16 04:50 109 H 39 H 98/56 90 L 12/18/16 04:40 109 H 40 H 98/56 87 L 12/18/16 04:20 110 H 37 H 98/56 90 L 12/18/16 04:10 111 H 38 H 105/56 88 L 12/18/16 04:00 98.9 F 103 H 36 H 105/56 92 L 12/18/16 03:50 107 H 37 H 105/56 92 L 12/18/16 03:40 105 H 31 H 105/56 89 L 12/18/16 03:30 107 H 39 H 105/56 89 L 12/18/16 03:20 105 H 31 H 105/56 91 L 12/18/16 03:10 109 H 38 H 87 L 12/18/16 03:00 102 H 33 H 88 L 12/18/16 02:50 108 H 37 H 88 L 12/18/16 02:40 105 H 35 H 91 L 12/18/16 02:30 100 33 H 89 L 12/18/16 02:20 105 H 36 H 89 L 12/18/16 02:00 96 39 H 91 L 12/18/16 01:50 109 H 47 H 87 L 12/18/16 01:40 97 35 H 90 L 12/18/16 01:30 99 27 H 12/18/16 01:20 103 H 33 H 87 L 12/18/16 01:10 92 36 H 91/57 93 L 12/18/16 01:00 94 37 H 94 L 12/18/16 00:50 107 H 34 H 93 L 12/18/16 00:40 113/91 12/18/16 00:30 113/91 12/18/16 00:20 101 H 36 H 113/91 89 L 12/18/16 00:10 101 H 36 H 60/32 95 12/18/16 00:00 97.6 F 100 36 H 64/39 12/17/16 23:50 87 32 H 68/47 93 L 12/17/16 23:40 95 35 H 77/46 92 L 12/17/16 23:30 101 H 37 H 79/43 96 12/17/16 23:20 93 36 H 79/43 95 12/17/16 23:10 97 30 H 79/43 97 12/17/16 23:01 100 36 H 76/36 12/17/16 23:00 99 28 H 76/36 12/17/16 22:50 103 H 27 H 76/36 12/17/16 22:40 98.1 F 101 H 41 H 68/38 97 04/01/17 22:30 98 41 H 73/41 69 L 12/17/16 22:20 101 H 35 H 65/44 78 L 12/17/16 22:10 195 H 78/44 12/17/16 22:06 178 H 96 12/17/16 21:47 69/33 12/17/16 21:22 109 H 18 73/43 12/17/16 21:21 73/43 12/17/16 21:11 87/44 12/17/16 21:09 156/104 12/17/16 21:07 69/37 12/17/16 21:03 83/36 12/17/16 19:56 96 18 143/54 12/17/16 19:41 83 18 98/33 12/17/16 19:36 112 H 18 101/46 12/17/16 19:35 97.7 F 20 79/35 92 L 12/17/16 14:36 55 L 12/17/16 13:51 97.6 F 55 L 16 127/92 95 Intake and Output 12/17/16 12/18/16 12/18/16 22:59 06:59 14:59 Intake Total 5236.967 Output Total 400 915 Balance -400 4321.967 Intake: IV 5200 Dextrose 5% in Water 1, 1200 000 ml @ 150 mls/hr IV . Q6H40M ABDULLAHI Rx#:[id number] Sodium Chloride 0.9% 1, 4000 000 ml @ 125 mls/hr IV . Q8H ABDULLAHI Rx#:[id number] Intake, IV Titration 36.967 Amount Norepinephrine 16 mg In 36.967 Sodium Chloride 0.9% 250 ml @ Titrate IV .Q0M ABDULLAHI Rx#:[id number] Output: Gastric Drainage 400 900 Urine 15 Other: Voiding Method Toilet Indwelling Catheter # Voids 3 3 Weight 85.7 kg ABP, PAP, CO, CI - Last 8 Hours Arterial Blood Pressure 93/56 Arterial Blood Pressure 96/58 Arterial Blood Pressure 107/62 Arterial Blood Pressure 106/59 Arterial Blood Pressure 110/57 Arterial Blood Pressure 105/61 Arterial Blood Pressure 104/56 Arterial Blood Pressure 113/61 Arterial Blood Pressure 104/58 Arterial Blood Pressure 108/60 Arterial Blood Pressure 102/54 Arterial Blood Pressure 103/56 Arterial Blood Pressure 90/51 Arterial Blood Pressure 110/58 Arterial Blood Pressure 111/56 Arterial Blood Pressure 103/53 Arterial Blood Pressure 108/57 Arterial Blood Pressure 96/52 Arterial Blood Pressure 106/53 Arterial Blood Pressure 100/51 Arterial Blood Pressure 112/63 Arterial Blood Pressure 101/49 Arterial Blood Pressure 114/58 Arterial Blood Pressure 112/52 Arterial Blood Pressure 123/55 Arterial Blood Pressure 102/49 Arterial Blood Pressure 109/50 Arterial Blood Pressure 109/47 Arterial Blood Pressure 103/45 Arterial Blood Pressure 100/37 Arterial Blood Pressure 88/43 Arterial Blood Pressure 95/43 Arterial Blood Pressure 97/44 Arterial Blood Pressure 93/37 The patient's in the distress. Very tachypneic and dyspneic. A bit confused. HEENT examination is grossly unremarkable. Mucous membranes are dry. NG tube in place. Neck supple. Full range of motion. Cardiovascular examination reveals tachycardia. S1 and S2 normal. Lungs reveal coarse rhonchi. Breath sounds are equal bilaterally. Abdomen distended. No bowel sounds are noted. Extremities are intact. No edema. Results - Laboratory Findings CBC and BMP: 12/18/16 04:35 12/18/16 04:35 ABG ABG pH 7.21 (7.35-7.45) L 12/18/16 08:08 ABG pCO2 23 mmHg (35-45) L 12/18/16 08:08 ABG pO2 57 mmHg (83-108) L 12/18/16 08:08 ABG O2 Saturation 84.0 % (94-97) L 12/18/16 08:08 PT/INR, D-dimer PT 10.6 sec (9.0-12.0) 12/16/16 07:23 INR 1.0 (<1.1) 12/16/16 07:23 Abnormal lab findings: Abnormal Labs 12/16/16 12/17/16 12/17/16 16:55 06:42 07:13 WBC 14.5 H Plt Count Neutrophils # (Manual) 11.9 H Lymphocytes # Lymphocytes # (Manual) 0.8 L Monocytes # (Manual) 1.4 H ABG pH ABG pCO2 ABG pO2 ABG HCO3 ABG Total CO2 ABG O2 Saturation ABG Lactic Acid Potassium Chloride Carbon Dioxide BUN Creatinine Glucose POC Glucose (mg/dL) 143 H 126 H Plasma Lactic Acid Felipe Calcium Phosphorus Total Bilirubin AST ALT Total Protein Albumin 12/17/16 12/17/16 12/17/16 07:13 17:02 17:46 WBC Plt Count Neutrophils # (Manual) Lymphocytes # Lymphocytes # (Manual) Monocytes # (Manual) ABG pH ABG pCO2 ABG pO2 ABG HCO3 ABG Total CO2 ABG O2 Saturation ABG Lactic Acid Potassium Chloride 113 H Carbon Dioxide 18 L BUN 33 H Creatinine 1.68 H Glucose 125 H POC Glucose (mg/dL) 67 L 64 L Plasma Lactic Acid Felipe Calcium Phosphorus Total Bilirubin AST ALT Total Protein Albumin 12/17/16 12/17/16 12/17/16 19:47 20:08 21:50 WBC Plt Count Neutrophils # (Manual) Lymphocytes # Lymphocytes # (Manual) Monocytes # (Manual) ABG pH ABG pCO2 ABG pO2 ABG HCO3 ABG Total CO2 ABG O2 Saturation ABG Lactic Acid Potassium 5.4 H Chloride 117 H Carbon Dioxide 11 L BUN 52 H Creatinine 3.52 H Glucose POC Glucose (mg/dL) 58 L 137 H Plasma Lactic Acid Felipe Calcium 8.3 L Phosphorus 5.4 H Total Bilirubin 1.7 H AST >750 H ALT 729 H Total Protein 5.3 L Albumin 2.6 L 12/17/16 12/17/16 12/17/16 22:13 22:22 22:42 WBC Plt Count 96 L D Neutrophils # (Manual) Lymphocytes # 0.8 L Lymphocytes # (Manual) Monocytes # (Manual) ABG pH ABG pCO2 ABG pO2 ABG HCO3 ABG Total CO2 ABG O2 Saturation ABG Lactic Acid Potassium Chloride Carbon Dioxide BUN Creatinine Glucose POC Glucose (mg/dL) 52 L Plasma Lactic Acid Felipe 7.8 H* Calcium Phosphorus Total Bilirubin AST ALT Total Protein Albumin 12/18/16 12/18/16 12/18/16 01:30 04:35 04:35 WBC Plt Count 129 L Neutrophils # (Manual) Lymphocytes # Lymphocytes # (Manual) Monocytes # (Manual) 1.4 H ABG pH ABG pCO2 ABG pO2 ABG HCO3 ABG Total CO2 ABG O2 Saturation ABG Lactic Acid Potassium Chloride 115 H Carbon Dioxide 14 L BUN 56 H Creatinine 3.42 H Glucose POC Glucose (mg/dL) Plasma Lactic Acid Felipe 2.8 H* Calcium 7.3 L Phosphorus Total Bilirubin 2.0 H AST 4821 H ALT 2720 H Total Protein 4.6 L Albumin 2.1 L 12/18/16 12/18/16 12/18/16 04:35 04:35 08:06 WBC Plt Count Neutrophils # (Manual) Lymphocytes # Lymphocytes # (Manual) Monocytes # (Manual) ABG pH ABG pCO2 ABG pO2 ABG HCO3 ABG Total CO2 ABG O2 Saturation ABG Lactic Acid 3.1 H* Potassium Chloride Carbon Dioxide BUN Creatinine Glucose POC Glucose (mg/dL) 69 L Plasma Lactic Acid Felipe Calcium Phosphorus 4.7 H Total Bilirubin AST ALT Total Protein Albumin 12/18/16 08:08 WBC Plt Count Neutrophils # (Manual) Lymphocytes # Lymphocytes # (Manual) Monocytes # (Manual) ABG pH 7.21 L ABG pCO2 23 L ABG pO2 57 L ABG HCO3 9 L* ABG Total CO2 10 L ABG O2 Saturation 84.0 L ABG Lactic Acid Potassium Chloride Carbon Dioxide BUN Creatinine Glucose POC Glucose (mg/dL) Plasma Lactic Acid Felipe Calcium Phosphorus Total Bilirubin AST ALT Total Protein Albumin - Diagnostic Findings Chest x-ray: image reviewed CT scan - chest: image reviewed (X-rays labs and medications are all reviewed. Vent settings were given.) Assessment and Plan (1) Respiratory failure Status: Acute (2) Metabolic acidosis Status: Acute (3) Small bowel obstruction Status: Acute (4) Abdominal pain Status: Acute (5) SBO (small bowel obstruction) Status: Resolved Plan: Plan The patient was intubated. A central line was placed. Vent settings were given. Medications labs and x-rays are reviewed. Prognosis is guarded. She' ll be going to the operating room for an exploratory laparotomy. I talked to the surgeon. Additional recommendations suggestions are forthcoming. Currently on propofol for sedation. Also on a Nimbex drip for paralysis. Again additional recommendations suggestions are forthcoming. She is on Levophed at 26 mics per minute. Time with Patient: Greater than 30
--- NOTE | 2016-12-18 09:28 | PCN ---
DATE OF PROCEDURE: PROCEDURE: Intubation PREOPERATIVE DIAGNOSIS: Respiratory failure. POSTOPERATIVE DIAGNOSIS: Respiratory failure. The patient was intubated with a #8 endotracheal tube. We used standard laryngoscope with #3 Sylvain blade. There was good visualization of the glottic opening. There was good color change on qualitative capnograph. There is good bilateral breath sounds. The balloon was inflated. The patient was connected to the ventilator. A chest x-ray was ordered to check placement.
--- NOTE | 2016-12-18 09:32 | PCN ---
DATE OF PROCEDURE: TRIPLE LUMEN CATHETER PLACEMENT Indication: Hemodynamic monitoring/Intravenous access. A time-out was completed verifying correct patient, procedure, site, positioning, and implant(s) or special equipment if applicable. The patient was placed in a dependent position appropriate for triple lumen catheter placement based on the vein to be cannulated. The patient's left neck was prepped and draped in sterile fashion. 1% Lidocaine was used to anesthetize the surrounding skin area. A triple lumen 9F Cordis catheter was introduced into the left internal jugular vein using Seldinger technique. The catheter was threaded smoothly over the guide wire and appropriate blood return was obtained. Each lumen of the catheter was evacuated of air and flushed with sterile saline. The catheter was then sutured in place to the skin and a sterile dressing applied. Perfusion to the extremity distal to the point of catheter insertion was checked and found to be adequate. There was no immediate complication. There was good blood return from all 3 ports. The catheter was sutured in place. Sterile dressing was applied by the nurse. Chest x-ray was ordered to check placement. A sterile dressing was applied by the nurse. Again, there were no immediate complications.
[2016-12-18] MEDS ORDERED: SODIUM BICARB 8.4% 50 ML SYR (1 MEQ/ML) IV STA ×3 (09:43→14:36)
[2016-12-18] MEDS ORDERED: SODIUM BICARB 8.4% 50 ML SYR (1 MEQ/ML) ONE ×2 (09:47→11:08)
[2016-12-18] MEDS: SODIUM BICARB 8.4% 50 ML SYR (1 MEQ/ML) ONE (09:53)
[2016-12-18] MEDS: DEXTROSE 5% IN WATER 1,000 ML with SODIUM BICARB (1 MEQ/ML) 150 ML IV SCH ×3 (10:03→21:18)
--- NOTE | 2016-12-18 10:16 | P.PN ---
Subjective Principal diagnosis: Small bowel obstruction bowel The patient was transferred to the ICU early this morning. I was unaware the transfer. The patient was seen by myself at 8:40 AM. Patient's had a CAT scan performed last night which shows evidence of increased ascites and inflammatory changes of the bowel. There is patchy inflammation of the small bowel and colon. There is still persistent dilation of the stomach and proximal small bowel. Dr. Hunt the residence director admitted the patient to the ICU. He is intubated the patient this morning and place a triple lumen catheter. Patient has had poor urine output overnight as well as hypotension. She is currently on levophed. And is intubated. Objective - Vital Signs Vital signs: Vital Signs Temp 98.9 F 12/18/16 04:00 Pulse 107 H 12/18/16 07:00 Resp 34 H 12/18/16 07:00 BP 86/64 12/18/16 06:10 Pulse Ox 93 L 12/18/16 07:00 Intake & Output 12/17/16 12/18/16 12/18/16 18:59 06:59 18:59 Intake Total 1000 5236.967 194.907 Output Total 400 1315 Balance 600 3921.967 194.907 Weight 85.7 kg Intake: IV 5200 Dextrose 5% in Water 1, 1200 000 ml @ 150 mls/hr IV . Q6H40M ABDULLAHI Rx#:[id number] Sodium Chloride 0.9% 1, 4000 000 ml @ 125 mls/hr IV . Q8H ABDULLAHI Rx#:[id number] Intake, IV Titration 1000 36.967 194.907 Amount Norepinephrine 16 mg In 36.967 194.907 Sodium Chloride 0.9% 250 ml @ Titrate IV .Q0M ABDULLAHI Rx#:[id number] Sodium Chloride 0.9% 1, 1000 000 ml @ 125 mls/hr IV . Q8H ABDULLAHI Rx#:[id number] Output: Gastric Drainage 400 1300 Urine 15 Other: Voiding Method Indwelling Catheter # Voids 3 3 ABP, PAP, CO, CI - Last Documented Arterial Blood Pressure 93/56 - Constitutional Constitutional Comment(s): Intubated - Gastrointestinal Gastrointestinal Comment(s): Abdomen soft with minimal distention. There is no peritoneal signs noted however the patient is intubated and sedated. - Labs CBC & Chem 7: 12/18/16 04:35 12/18/16 04:35 Labs: Abnormal Lab Results - Last 24 Hours (Table) 12/17/16 12/17/16 12/17/16 Range/Units 17:02 17:46 19:47 Plt Count (150-450) k/uL Lymphocytes # (1.0-4.8) k/uL Monocytes # (Manual) (0-1.0) k/uL ABG pH (7.35-7.45) ABG pCO2 (35-45) mmHg ABG pO2 (83-108) mmHg ABG HCO3 (21-25) mmol/L ABG Total CO2 (19-24) mmol/L ABG O2 Saturation (94-97) % ABG Lactic Acid (0.5-1.6) mmol/L Potassium (3.5-5.1) mmol/L Chloride (98-107) mmol/L Carbon Dioxide (22-30) mmol/L BUN (7-17) mg/dL Creatinine (0.52-1.04) mg/dL POC Glucose (mg/dL) 67 L 64 L 58 L (75-99) mg/dL Plasma Lactic Acid Felipe (0.7-2.0) mmol/L Calcium (8.4-10.2) mg/dL Phosphorus (2.5-4.5) mg/dL Total Bilirubin (0.2-1.3) mg/dL AST (14-36) U/L ALT (9-52) U/L Total Protein (6.3-8.2) g/dL Albumin (3.5-5.0) g/dL 12/17/16 12/17/16 12/17/16 Range/Units 20:08 21:50 22:13 Plt Count (150-450) k/uL Lymphocytes # (1.0-4.8) k/uL Monocytes # (Manual) (0-1.0) k/uL ABG pH (7.35-7.45) ABG pCO2 (35-45) mmHg ABG pO2 (83-108) mmHg ABG HCO3 (21-25) mmol/L ABG Total CO2 (19-24) mmol/L ABG O2 Saturation (94-97) % ABG Lactic Acid (0.5-1.6) mmol/L Potassium 5.4 H (3.5-5.1) mmol/L Chloride 117 H (98-107) mmol/L Carbon Dioxide 11 L (22-30) mmol/L BUN 52 H (7-17) mg/dL Creatinine 3.52 H (0.52-1.04) mg/dL POC Glucose (mg/dL) 137 H 52 L (75-99) mg/dL Plasma Lactic Acid Felipe (0.7-2.0) mmol/L Calcium 8.3 L (8.4-10.2) mg/dL Phosphorus 5.4 H (2.5-4.5) mg/dL Total Bilirubin 1.7 H (0.2-1.3) mg/dL AST >750 H (14-36) U/L ALT 729 H (9-52) U/L Total Protein 5.3 L (6.3-8.2) g/dL Albumin 2.6 L (3.5-5.0) g/dL 12/17/16 12/17/16 12/18/16 Range/Units 22:22 22:42 01:30 Plt Count 96 L D (150-450) k/uL Lymphocytes # 0.8 L (1.0-4.8) k/uL Monocytes # (Manual) (0-1.0) k/uL ABG pH (7.35-7.45) ABG pCO2 (35-45) mmHg ABG pO2 (83-108) mmHg ABG HCO3 (21-25) mmol/L ABG Total CO2 (19-24) mmol/L ABG O2 Saturation (94-97) % ABG Lactic Acid (0.5-1.6) mmol/L Potassium (3.5-5.1) mmol/L Chloride (98-107) mmol/L Carbon Dioxide (22-30) mmol/L BUN (7-17) mg/dL Creatinine (0.52-1.04) mg/dL POC Glucose (mg/dL) (75-99) mg/dL Plasma Lactic Acid Felipe 7.8 H* 2.8 H* (0.7-2.0) mmol/L Calcium (8.4-10.2) mg/dL Phosphorus (2.5-4.5) mg/dL Total Bilirubin (0.2-1.3) mg/dL AST (14-36) U/L ALT (9-52) U/L Total Protein (6.3-8.2) g/dL Albumin (3.5-5.0) g/dL 12/18/16 12/18/16 12/18/16 Range/Units 04:35 04:35 04:35 Plt Count 129 L (150-450) k/uL Lymphocytes # (1.0-4.8) k/uL Monocytes # (Manual) 1.4 H (0-1.0) k/uL ABG pH (7.35-7.45) ABG pCO2 (35-45) mmHg ABG pO2 (83-108) mmHg ABG HCO3 (21-25) mmol/L ABG Total CO2 (19-24) mmol/L ABG O2 Saturation (94-97) % ABG Lactic Acid (0.5-1.6) mmol/L Potassium (3.5-5.1) mmol/L Chloride 115 H (98-107) mmol/L Carbon Dioxide 14 L (22-30) mmol/L BUN 56 H (7-17) mg/dL Creatinine 3.42 H (0.52-1.04) mg/dL POC Glucose (mg/dL) (75-99) mg/dL Plasma Lactic Acid Felipe (0.7-2.0) mmol/L Calcium 7.3 L (8.4-10.2) mg/dL Phosphorus 4.7 H (2.5-4.5) mg/dL Total Bilirubin 2.0 H (0.2-1.3) mg/dL AST 4821 H (14-36) U/L ALT 2720 H (9-52) U/L Total Protein 4.6 L (6.3-8.2) g/dL Albumin 2.1 L (3.5-5.0) g/dL 12/18/16 12/18/16 12/18/16 Range/Units 04:35 08:06 08:08 Plt Count (150-450) k/uL Lymphocytes # (1.0-4.8) k/uL Monocytes # (Manual) (0-1.0) k/uL ABG pH 7.21 L (7.35-7.45) ABG pCO2 23 L (35-45) mmHg ABG pO2 57 L (83-108) mmHg ABG HCO3 9 L* (21-25) mmol/L ABG Total CO2 10 L (19-24) mmol/L ABG O2 Saturation 84.0 L (94-97) % ABG Lactic Acid 3.1 H* (0.5-1.6) mmol/L Potassium (3.5-5.1) mmol/L Chloride (98-107) mmol/L Carbon Dioxide (22-30) mmol/L BUN (7-17) mg/dL Creatinine (0.52-1.04) mg/dL POC Glucose (mg/dL) 69 L (75-99) mg/dL Plasma Lactic Acid Felipe (0.7-2.0) mmol/L Calcium (8.4-10.2) mg/dL Phosphorus (2.5-4.5) mg/dL Total Bilirubin (0.2-1.3) mg/dL AST (14-36) U/L ALT (9-52) U/L Total Protein (6.3-8.2) g/dL Albumin (3.5-5.0) g/dL Assessment and Plan Plan: Small bowel obstruction with sepsis. I discussed with family that I'm concerned about possible ischemic bowel. The CAT scan shows no definite transition point. However with the results of patchy inflammation of the small bowel and colon the possibility of ischemic enterocolitis exists. I recommended she undergo emergent exploratory laparotomy. The patient received fluid hydration prior to the OR. I attempted to take the patient to the OR at 9 AM however there was orthopedic case in progress. The patient will be the next patient scheduled for surgery. In the meantime we will give her fluids and try to stabilize her condition. I had a lengthy discussion with the family that her underlying medical problem is quite serious and I explained the risks of surgery including prolonged respiratory support, bleeding, infection and the possibility of .
--- NOTE | 2016-12-18 10:58 | XR ---
EXAMINATION TYPE: XR chest 1V confirm line plcmt DATE OF EXAM: 12/18/2016 9:56 AM HISTORY: line placment and ogt. REFERENCE: Previous study dated 12/18/2016. FINDINGS: The apices of the lungs are not included on this study. The patient is NG tube remains in place, unchanged in appearance. There are bilateral effusions. There is worsening opacity of both lung bases particularly in the retr ocardiac region. There are small effusions. Heart size is upper limits of normal. IMPRESSION: 1. BORDERLINE CARDIOMEGALY. 2. SMALL EFFUSIONS. 3. WORSENING AIRSPACE DISEASE, LEFT LUNG BASE.
[2016-12-18] MEDS ORDERED: ROCURONIUM BROMIDE 10 MG/ML 10 ML VIAL IV ONE (11:08)
[2016-12-18] MEDS ORDERED: ALBUMIN HUMAN 5% 250 ML BOTTLE IVPB ONE (11:08)
[2016-12-18] MEDS ORDERED: MIDAZOLAM 2 MG/2 ML VIAL ONE (11:08)
[2016-12-18] MEDS ORDERED: PHENYLEPHRINE-0.9% NACL SYG 1 MG/10 ML SYRINGE ONE (11:08)
[2016-12-18] MEDS ORDERED: fentaNYL (PF) 50 MCG/ML 2 ML AMP ONE (11:08)
[2016-12-18] MEDS ORDERED: IV FLUID CONTINUATION 1,000 ML IV ONE (11:08)
[2016-12-18 11:18] LABS: ABG Base Excess -17.5 mmol/L; ABG HCO3 11 mmol/L (21-25); ABG PCO2 47 mmHg (35-45); ABG PH 7.02 (7.35-7.45); ABG PO2 133 mmHg (83-108); ABG TCO2 13 mmol/L (19-24)
[2016-12-18] MEDS ORDERED: LACTATED RINGERS 1,000 ML IV ONE ×2 (11:48)
[2016-12-18 11:57] LABS: ABG Base Excess -15.5 mmol/L; ABG HCO3 13 mmol/L (21-25); ABG Oxygen Saturation 97.8 % (94-97); ABG PCO2 43 mmHg (35-45); ABG PO2 158 mmHg (83-108)
[2016-12-18 12:06] LABS: ABG PH 7.11 (7.35-7.45)
[2016-12-18] MEDS: IPRATROPIUM-ALBUTEROL 3 ML NEB INHALATION SCH ×4 (12:30→23:53)
--- NOTE | 2016-12-18 13:34 | P.OP ---
Date of Procedure: 12/18/16 Preoperative Diagnosis: Small bowel obstruction Postoperative Diagnosis: Ischemic terminal ileum, right colon and transverse colon Procedure(s) Performed: Exploratory laparotomy. Small bowel resection Partial colectomy with right colon and transverse colon excised. Takedown of splenic flexure Partial omentectomy Lysis of adhesions Anesthesia: DEISI Surgeon: Joe Calvert Estimated Blood Loss (ml): 30 Pathology: other (Terminal ileum, right colon, transverse colon, omentum) Condition: critical Disposition: ICU Description of Procedure: The patient's placed on the operating table in the supine position. She received general anesthesia. Her abdomen was prepped and draped in usual sterile fashion. The abdomen was entered through midline incision. There was small bowel adherent to the presents midline laparotomy scar. The small bowel was ischemic. A small enterotomy in the adherent small bowel at the incision site this was repaired with 3-0 GI silk. The small bowel was grossly ischemic. Proximal 15 minutes operative time used to lyse adhesions. The Bookwalter retractor was placed the limb. The terminal ileum, right colon and transverse colon appeared grossly ischemic. There is no evidence of any bowel perforation. The stomach was visualized. There appeared to be no obvious adhesion of the small bowel. There was no volvulus with a got either. At this point the duodenum was visualized. And then the small bowel was run to a viable portion. This was in the distal jejunum. The small bowel was transected with a GI stapler. Following this the colon was mobilized by dividing the white line of Toldt. The right colon was mobilized towards the midline. And then the hepatic flexure was taken down with blunt and sharp dissection. The omentum was dissected off the transverse colon using the Harmonic scissors. And then the splenic flexure was mobilized. The colon was grossly ischemic to the level of the proximal descending colon. The splenic flexure appeared to be ischemic. At this point the proximal distending colon was divided using the linear cutter stapler. Following this the mesentery of the terminal ileum and right colon and transverse colon were divided using the LigaSure device. Several small bleeding vessels were ligated with 3-0 GI silk ties. The abdomen was then irrigated with 6 L of normal saline. There was some areas of the descending colon which had some patchy ischemia. The colon was observed appeared to a pink and viable after the irrigation. At this point a pelvic AFIA drain was placed. The ileostomy was brought up in the right upper quadrant. There was irrigated again. There is no bleeding seen. The fascia was closed loop #1 PDS suture. A AFIA drain is placed in subcutaneous tissues and brought out through a lower stab incision. The skin was closed rc. The ileostomy was matured with 3-0 GI silk suture. At the beginning case the patient was on 40 g of levophed, at the end of the case patient was on 10 g of Levophed. Patient was transferred to the ICU in critical condition.
[2016-12-18] MEDS: ARTIFICIAL TEARS-HYPROMELLOSE DROPS 15 ML BTL BOTH EYES SCH ×4 (13:52→21:31)
[2016-12-18] MEDS: PANTOPRAZOLE 40 MG/10 ML VIAL IV SCH (13:53)
[2016-12-18 13:56] LABS: ABG Base Excess -10.7 mmol/L; ABG HCO3 16 mmol/L (21-25); ABG PCO2 44 mmHg (35-45); ABG PH 7.19 (7.35-7.45); ABG PO2 65 mmHg (83-108); ABG TCO2 17 mmol/L (19-24)
[2016-12-18 13:57] LABS: CH 29.9; CHCM 31.5; HCT 29.8 % (34.0-46.0); HDW 2.58; Immature Gran Flag Marked; MCH 30.9 pg (25.0-35.0); MCHC 32.4 g/dL (31.0-37.0); MCV 95.5 fL (80.0-100.0); Mean Platelet Volume 8.9; RBC 3.12 m/uL (3.80-5.40); RDW 14.2 % (11.5-15.5); WBC 8.6 k/uL (3.8-10.6); WBC (Perox) 8.68
[2016-12-18] MEDS: NOREPINEPHRINE 16 MG in SODIUM CHLORIDE 0.9% 250 ML IV SCH ×2 (14:05→19:58)
[2016-12-18 14:08] LABS: HGB 9.6 gm/dL (11.4-16.0)
[2016-12-18 14:11] LABS: Magnesium 1.3 mg/dL (1.6-2.3); Phosphorous 5.9 mg/dL (2.5-4.5); Total Bilirubin 2.3 mg/dL (0.2-1.3); Total Protein 3.3 g/dL (6.3-8.2)
[2016-12-18 14:21] LABS: Add Differential Manual Differential; Calcium 6.1 mg/dL (8.4-10.2)
[2016-12-18 14:28] LABS: Metamyelocytes % 21.5 %; Nucleated Red Blood Cells 0 /100 WBC (0-0); Total Cells Counted 200
[2016-12-18] MEDS: DEXTROSE 50%-WATER 50 ML SYRINGE IVP STA (14:30)
[2016-12-18 14:50] LABS: Glucose,Whole Blood 62 mg/dL (75-99)
[2016-12-18] MEDS ORDERED: DEXTROSE 50%-WATER 50 ML SYRINGE IVP STA (14:51)
[2016-12-18] MEDS: MAGNESIUM SULFATE-D5W PMX 1 GM in DEXTROSE/WATER 1 100ML.BAG IVPB SCH ×2 (14:59→16:02)
[2016-12-18 15:15] LABS: Glucose,Whole Blood 101 mg/dL (75-99)
[2016-12-18] MEDS: FUROSEMIDE 10 MG/ML 10 ML VIAL IV STA ×2 (15:16→15:54)
[2016-12-18] MEDS ORDERED: DILTIAZEM 125 MG in SODIUM CHLORIDE 0.9% 100 ML IV SCH (15:45)
[2016-12-18] MEDS: PROPOFOL 500 MG in EMPTY BAG 1 BAG IV SCH ×2 (15:58→23:09)
[2016-12-18] MEDS ORDERED: SODIUM CHLORIDE 0.9% 99 ML with VASOPRESSIN 20 UNIT IV SCH ×2 (19:00)
[2016-12-18 19:08] LABS: ABG Base Excess -7.3 mmol/L; ABG HCO3 19 mmol/L (21-25); ABG Oxygen Saturation 93.3 % (94-97); ABG PCO2 48 mmHg (35-45); ABG PH 7.23 (7.35-7.45); ABG PO2 81 mmHg (83-108); ABG TCO2 21 mmol/L (19-24)
[2016-12-18 21:12] LABS: Phosphorous 7.6 mg/dL (2.5-4.5); Potassium 5.8 mmol/L (3.5-5.1)
[2016-12-18] MEDS ORDERED: CALCIUM GLUCONATE 1,000 MG in SODIUM CHLORIDE 0.9% 100 ML IVPB ONE (21:25)
[2016-12-18 22:26] LABS: Glucose,Whole Blood 91 mg/dL (75-99)
[2016-12-18 23:11] VITALS: RESP 24
[2016-12-19] MEDS: ARTIFICIAL TEARS-HYPROMELLOSE DROPS 15 ML BTL BOTH EYES SCH (00:15)
[2016-12-19] MEDS: PIPERACILLIN-TAZOBACTAM 3.375 GM in DEXTROSE/WATER 1 50ML.BAG IVPB SCH (00:15)
[2016-12-19] MEDS: NOREPINEPHRINE 16 MG in SODIUM CHLORIDE 0.9% 250 ML IV SCH (01:05)
[2016-12-19 01:36] VITALS: TEMP 98.1
[2016-12-19 01:37] LABS: Calcium 6.6 mg/dL (8.4-10.2)
[2016-12-19 01:48] LABS: Potassium 8.6 mmol/L (3.5-5.1)
[2016-12-19 01:55] LABS: Glucose,Whole Blood 71 mg/dL (75-99)
[2016-12-19] MEDS ORDERED: SODIUM BICARB 8.4% 50 ML SYR (1 MEQ/ML) IV STA (01:59)
[2016-12-19] MEDS ORDERED: INSULIN REGULAR 100 UNIT/ML VIAL IV ONE (02:02)
[2016-12-19] MEDS ORDERED: DEXTROSE 50%-WATER 50 ML SYRINGE IVP STA (02:02)
[2016-12-19] MEDS ORDERED: ALBUTEROL NEB (CONC) 2.5 MG/0.5 ML INHALATION STA (02:03)
[2016-12-19] MEDS ORDERED: CALCIUM GLUCONATE 1,000 MG in SODIUM CHLORIDE 0.9% 100 ML IVPB ONE (02:04)
--- NOTE | 2016-12-19 03:22 | P.PCN ---
Date of Procedure: 12/19/16 Preoperative Diagnosis: Hyperkalemia, acute kidney injury Postoperative Diagnosis: Hyperkalemia, acute kidney injury Procedure(s) Performed: Temporary non-tunneled right femoral dialysis catheter Surgeon: Shania Taylor Pathology: none sent Condition: critical Disposition: no change Indications for Procedure: Hyperkalemia, acute kidney injury Description of Procedure: After sterile prep and drape of the right groin, the area overlying the right femoral vein was identified with ultrasound. A 21-gauge needle was placed into the right common femoral vein under ultrasound guidance and an 018" wire was threaded proximally. A core and sheath were threaded over the wire the wire and core were removed. A 035" J-wire was threaded into the inferior vena cava. This was at first somewhat difficult secondary to venospasm since the patient was on high-dose Levophed. Once confirmation of that wire was in the inferior vena cava was made, the tract into the femoral vein was sequentially dilated. Finally a temporary dialysis catheter was threaded over the wire, the wire was removed. All ports aspirated and flushed venous blood without difficulty and were capped with a solution of the thousand units of heparin per cc. The catheter was secured with a 2-0 silk suture. Sterile dressing. Patient tolerated this procedure without difficulty.
[2016-12-19] MEDS: IPRATROPIUM-ALBUTEROL 3 ML NEB INHALATION SCH (03:27)
--- NOTE | 2016-12-19 03:59 | ED ---
Medical Decision Making - Medical Decision Making Called for CODE BLUE to ICU. Patient underwent approximately 10 minutes of CPR. Patient did have return of circulation. Patient was given additional bicarb as well as calcium and Lasix. Plan is for dialysis. Family had made decision to discontinue CPR however pulse did return. Nursing is updating family. - Lab Data Result diagrams: 12/18/16 13:45 12/19/16 01:00 Lab Results 12/16/16 12/16/16 12/16/16 Range/Units 07:23 07:23 07:23 WBC 9.6 (3.8-10.6) k/uL RBC 5.52 H (3.80-5.40) m/uL Hgb 16.7 H (11.4-16.0) gm/dL Hct 49.8 H (34.0-46.0) % MCV 90.2 (80.0-100.0) fL MCH 30.3 (25.0-35.0) pg MCHC 33.5 (31.0-37.0) g/dL RDW 13.4 (11.5-15.5) % Plt Count 274 (150-450) k/uL Neutrophils % 80 % Lymphocytes % 14 % Monocytes % 5 % Eosinophils % 0 % Basophils % 0 % Neutrophils # 7.6 (1.3-7.7) k/uL Lymphocytes # 1.3 (1.0-4.8) k/uL Monocytes # 0.5 (0-1.0) k/uL Eosinophils # 0.0 (0-0.7) k/uL Basophils # 0.0 (0-0.2) k/uL PT (9.0-12.0) sec INR (<1.1) APTT (22.0-30.0) sec Sodium 143 (137-145) mmol/L Potassium 3.7 (3.5-5.1) mmol/L Chloride 105 (98-107) mmol/L Carbon Dioxide 19 L (22-30) mmol/L Anion Gap 19 mmol/L BUN 16 (7-17) mg/dL Creatinine 0.70 (0.52-1.04) mg/dL Est GFR (MDRD) Af Amer >60 (>60 ml/min/1.73 sqM) Est GFR (MDRD) Non-Af >60 (>60 ml/min/1.73 sqM) Glucose 244 H (74-99) mg/dL Estimated Ave Glu mg/dL mg/dL Hemoglobin A1c (4.2-6.1) % Calcium 9.9 (8.4-10.2) mg/dL Total Bilirubin 0.8 (0.2-1.3) mg/dL AST 24 (14-36) U/L ALT 20 (9-52) U/L Alkaline Phosphatase 138 H (38-126) U/L Total Creatine Kinase 31 (30-135) U/L CK-MB (CK-2) 0.6 (0.0-2.4) ng/mL CK-MB (CK-2) Rel Index 1.9 Troponin I <0.012 (0.000-0.034) ng/mL Total Protein 8.1 (6.3-8.2) g/dL Albumin 4.4 (3.5-5.0) g/dL Amylase 52 (30-110) U/L Lipase 64 (23-300) U/L Urine Color Urine Appearance (Clear) Urine pH (5.0-8.0) Ur Specific [place] (1.001-1.035) Urine Protein (Negative) Urine Glucose (UA) (Negative) Urine Ketones (Negative) Urine Blood (Negative) Urine Nitrite (Negative) Urine Bilirubin (Negative) Urine Urobilinogen (<2.0) mg/dL Ur Leukocyte Esterase (Negative) Urine RBC (0-5) /hpf Urine WBC (0-5) /hpf Ur Squamous Epith Cells (0-4) /hpf Urine Mucus (None) /hpf 12/16/16 12/16/16 12/16/16 Range/Units 07:23 07:23 09:24 WBC (3.8-10.6) k/uL RBC (3.80-5.40) m/uL Hgb (11.4-16.0) gm/dL Hct (34.0-46.0) % MCV (80.0-100.0) fL MCH (25.0-35.0) pg MCHC (31.0-37.0) g/dL RDW (11.5-15.5) % Plt Count (150-450) k/uL Neutrophils % % Lymphocytes % % Monocytes % % Eosinophils % % Basophils % % Neutrophils # (1.3-7.7) k/uL Lymphocytes # (1.0-4.8) k/uL Monocytes # (0-1.0) k/uL Eosinophils # (0-0.7) k/uL Basophils # (0-0.2) k/uL PT 10.6 (9.0-12.0) sec INR 1.0 (<1.1) APTT 22.4 (22.0-30.0) sec Sodium (137-145) mmol/L Potassium (3.5-5.1) mmol/L Chloride (98-107) mmol/L Carbon Dioxide (22-30) mmol/L Anion Gap mmol/L BUN (7-17) mg/dL Creatinine (0.52-1.04) mg/dL Est GFR (MDRD) Af Amer (>60 ml/min/1.73 sqM) Est GFR (MDRD) Non-Af (>60 ml/min/1.73 sqM) Glucose (74-99) mg/dL Estimated Ave Glu mg/dL 117 mg/dL Hemoglobin A1c 5.7 (4.2-6.1) % Calcium (8.4-10.2) mg/dL Total Bilirubin (0.2-1.3) mg/dL AST (14-36) U/L ALT (9-52) U/L Alkaline Phosphatase (38-126) U/L Total Creatine Kinase (30-135) U/L CK-MB (CK-2) (0.0-2.4) ng/mL CK-MB (CK-2) Rel Index Troponin I (0.000-0.034) ng/mL Total Protein (6.3-8.2) g/dL Albumin (3.5-5.0) g/dL Amylase (30-110) U/L Lipase (23-300) U/L Urine Color Yellow Urine Appearance Clear (Clear) Urine pH 6.0 (5.0-8.0) Ur Specific [place] >1.050 H (1.001-1.035) Urine Protein Trace H (Negative) Urine Glucose (UA) 3+ H (Negative) Urine Ketones Trace H (Negative) Urine Blood Small H (Negative) Urine Nitrite Negative (Negative) Urine Bilirubin Negative (Negative) Urine Urobilinogen <2.0 (<2.0) mg/dL Ur Leukocyte Esterase Negative (Negative) Urine RBC 2 (0-5) /hpf Urine WBC 2 (0-5) /hpf Ur Squamous Epith Cells 3 (0-4) /hpf Urine Mucus Rare H (None) /hpf Disposition Clinical Impression: Small bowel obstruction Disposition: ADMITTED IP TO THIS HOSP
[2016-12-19 04:48] VITALS: BP 205/93; PULSE 0
[2016-12-19] MEDS ORDERED: CHLORHEXIDINE GLUCONATE 15 ML CUP MUCOUS MEM SCH (09:00)
[2016-12-19] MEDS ORDERED: HYDROCORTISONE SUCCINATE 100 MG/2 ML VIAL IV SCH ×2 (18:57)
--- NOTE | 2016-12-21 12:18 | CDI ---
In responding to this query, please exercise your independent professional judgment. The [facility] Coding Staff and Clinical Documentation Specialists appreciate your assistance in clarifying documentation, maintaining compliance with coding guidelines, accurately documenting patients condition and capturing severity of illness. The fact that a question is asked does not imply that any particular answer is desired or expected. Communication forms are a method of clarifying documentation and are not made part of the Legal Health Record. Thank you in advance for your clarification. Last Revision, July 2015 [facility] [address] [place] [address] Documentation Clarification Form Date: 12/21/2016 12:06:00 PM From: Mala Killian Phone: Admit Date: 12/16/2016 9:45:00 AM Patient Name: Natalya Booth Visit Number: [id number] Discharge Date: 12/21/16 Dr. Joe Calvert Patient admitted with small bowel obstruction. Surgery performed on 12/18, postoperative diagnosis ischemic terminal ileu, righ colong and transverse colon. 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 Include clinical findings that support your diagnosis. FYI: Press F11 to launch patient chart. CHUCHO Avilez, CCS, AHIMA Certified [employer] Garment Patternmaker/[employer] II [place]
--- NOTE | 2017-01-18 10:21 | P.DS ---
Providers Date of admission: 12/16/16 09:45 Expected date of discharge: 12/19/16 Attending physician: Joe Calvert Consults: 12/16/16 10:21 Consult Physician Urgent Consulting Provider: Cynthia Webber Consult Reason/Comments: medical management Do you want consulting provider notified?: Yes 12/17/16 21:40 Consult Physician Stat Consulting Provider: Arnie Hunt Consult Reason/Comments: ICU management Do you want consulting provider notified?: Yes 12/18/16 13:40 Consult Physician Stat Consulting Provider: Pantera Hunter Consult Reason/Comments: renal failure Do you want consulting provider notified?: Yes 12/19/16 02:05 Consult Physician Stat Consulting Provider: Shania Taylor Consult Reason/Comments: urgent dailysis catheter placement Do you want consulting provider notified?: Yes Primary care physician: Jacqui Palacios [facility] Course: This a 66-year-old female who was admitted to the hospital for small bowel obstruction. The patient was initially treated with NG tube decompression. He had significant clinical changes on 42 which required exploratory laparotomy. At the time of her laparotomy she was found to have ischemic small bowel and right colon. Please see hospital chart for details. Procedures: Exploratory laparotomy Plan - Discharge Summary Discharge Medication List Atorvastatin [Lipitor] 20 mg PO HS 12/16/16 [History] Calcium Carbonate/Vitamin D3 [Calcium 600-Vit D3 200 Tablet] 1 tab PO DAILY [History] Multivitamins, Thera [Multivitamin (formulary)] 1 tab PO DAILY 12/16/16 [History ] amLODIPine BESYLATE/BENAZEPRIL [amLODIPine BESYLATE/BENAZEPRIL 10-20 mg] 1 cap PO DAILY 12/16/16 [History] Follow up Appointment(s)/Referral(s): Jacqui Palacios MD [Primary Care Provider] - 1-2 days Discharge Disposition: - Preliminary Cause of Preliminary Cause of : Cardiorespiratory arrest
== END 2016-12-19 09:01 | disposition expired | DRG 329 ==
LOC: EC 07:11 → 3SUR 09:45 → 6ICU 12-17 21:44
PROVIDERS: ADMIT Surgery; ATTEND Surgery
PROC: 0D9670Z Drainage of Stomach with Drainage Device, Via Natural or Artificial Opening (ICD-10-PCS; 2016-12-16)
PROC: 0D1B0Z4 Bypass Ileum to Cutaneous, Open Approach (ICD-10-PCS; 2016-12-18)
PROC: 0DBS0ZZ (ICD-10-PCS; 2016-12-18)
PROC: 0DBB0ZZ Excision of Ileum, Open Approach (ICD-10-PCS; 2016-12-18)
PROC: 5A1935Z Respiratory Ventilation, Less than 24 Consecutive Hours (ICD-10-PCS; 2016-12-18)
PROC: 0BH17EZ Insertion of Endotracheal Airway into Trachea, Via Natural or Artificial Opening (ICD-10-PCS; 2016-12-18)
PROC: 05HN33Z Insertion of Infusion Device into Left Internal Jugular Vein, Percutaneous Approach (ICD-10-PCS; 2016-12-18)
PROC: 0DTF0ZZ Resection of Right Large Intestine, Open Approach (ICD-10-PCS; principal; 2016-12-18 09:02)
PROC: 06H033Z Insertion of Infusion Device into Inferior Vena Cava, Percutaneous Approach (ICD-10-PCS; 2016-12-19)
PROC: B549ZZA Ultrasonography of Inferior Vena Cava, Guidance (ICD-10-PCS; 2016-12-19)
PROC: 5A12012 Performance of Cardiac Output, Single, Manual (ICD-10-PCS; 2016-12-19)
DX: K56.60 Unspecified intestinal obstruction (principal); A41.9 Sepsis, unspecified organism; J96.90 Respiratory failure, unspecified, unspecified whether with hypoxia or hypercapnia; N17.9 Acute kidney failure, unspecified; E87.2 Acidosis; I95.9 Hypotension, unspecified; R18.8 Other ascites; K55.9 Vascular disorder of intestine, unspecified; E87.8 Other disorders of electrolyte and fluid balance, not elsewhere classified; I46.9 Cardiac arrest, cause unspecified; E87.5 Hyperkalemia; E86.9 Volume depletion, unspecified; I10 Essential (primary) hypertension; E78.5 Hyperlipidemia, unspecified; M81.0 Age-related osteoporosis without current pathological fracture; F17.200 Nicotine dependence, unspecified, uncomplicated; Z98.42 Cataract extraction status, left eye; Z98.41 Cataract extraction status, right eye; Z90.49 Acquired absence of other specified parts of digestive tract; Z79.899 Other long term (current) drug therapy
CPT/HCPCS: 36415; 36600; 36620; 71010; 74000; 74176; 74177; 80048; 80053; 81001; 82150; 82533; 82550; 82553; 82805; 83036; 83605; 83690; 83735; 84100; 84484; 85025; 85610; 85730; 86850; 86900; 86901; 87040; 88307; 90935; 94002; 94003; 94640; 96361; 96374; 96375; 96376; 99285